=== PATIENT | female | born 1985 | race Caucasian/White ===

== ENCOUNTER → 2017-12-04 17:14 | Outpatient (CLI) | payer OTHER, MEDICAID, SELFPAY ==
[2017-12-04 18:38] LABS: HCG Quantitative /Beta subunit < 2.39 mIU/mL
== END ==
PROVIDERS: Family Provider Family Medicine; PCP Family Medicine; Visit Provider Family Medicine
DX: N91.2 Amenorrhea, unspecified (principal)
CPT/HCPCS: 36415; 84702

== ENCOUNTER → 2018-02-13 12:10 | Outpatient (CLI) | payer OTHER, MEDICAID, SELFPAY ==
[2018-02-13 12:30] LABS: Add Manual Diff / Slide Review NO; Basophils Percent Auto 0.6 % (0-2); Eosinophils Percent Auto 0.8 % (2-4); Hematocrit 35.6 % (36-46); Hemoglobin 12.1 g/dL (12.0-16.0); Lymphocytes Percent Auto 28.7 % (25-40); Mean Corpuscular HGB Conc 33.9 % (30-36); Mean Corpuscular Hemoglobin 30.8 PG (26-34); Mean Corpuscular Volume 90.7 fL (80-100); Neutrophils Absolute Auto 5800 /uL (3000-5900); Neutrophils Percent Auto 62.9 % (50-75); Platelet Count 230 X10^3/uL (150-400); Red Blood Cell Count 3.92 X10^6/uL (4.0-5.2); Red Cell Distribution Width 12.4 % (11.6-14.8); White Blood Cell Count 9.2 X10^3/uL (4.5-11.0)
[2018-02-13 12:54] LABS: Appearance Urine UA SL CLOUDY; Bilirubin Urine UA NEGATIVE (NEGATIVE); Color Urine UA YELLOW; Glucose Urine UA NEGATIVE (Normal); Ketones Urine UA TRACE (NEGATIVE); Leukocyte Esterase Urine UA NEGATIVE (NEGATIVE); Nitrite Urine UA NEGATIVE (Negative); Occult Blood Urine UA NEGATIVE (Negative); Protein Urine UA NEGATIVE (Negative); Specific Gravity Urine UA >=1.030 (1.000-1.035); Urobilinogen Urine UA 0.2 E.U./dL (0.2); pH Urine UA 5.5 (4.5-8.0)
[2018-02-13 13:17] LABS: TSH w/ Reflex to FT4 0.04 uIU/mL (0.47-4.68)
[2018-02-13 13:54] LABS: Free T4, Direct Thyroxine 1.46 ng/dL (0.78-2.19)
[2018-02-13 17:06] LABS: Hepatitis B Surface Antigen NEGATIVE s/c (NEGATIVE); Rubella Antibody IgG 67.9 IU/mL (>15)
[2018-02-13 17:27] LABS: HIV 1 and 2 Antibody NEGATIVE (NEGATIVE); Hep C Virus Ab w/Reflex Quant NEGATIVE s/c (NEGATIVE)
[2018-02-15 13:19] LABS: RPR Screen Nonreactive (Nonreactive)
[2018-02-16 08:55] LABS: HSV 2 IGG AB < 0.90 index (< 0.90); HSV1IGG 2.79 index (< 0.90)
== END ==
PROVIDERS: Family Provider Family Medicine; PCP Family Medicine; Visit Provider Specialist
DX: Z34.81 Encounter for supervision of other normal pregnancy, first trimester (principal); Z3A.01 Less than 8 weeks gestation of pregnancy; Z13.29 Encounter for screening for other suspected endocrine disorder
CPT/HCPCS: 80055; 81003; 84439; 84443; 86695; 86696; 86703; 86787; 86803; 86850; 86900; 86901; 87077; 87086

== ENCOUNTER → 2018-04-12 16:19 | Outpatient (CLI) | payer OTHER, MEDICAID, SELFPAY ==
[2018-04-19 08:38] LABS: AFP, Serum 87.5 ng/mL; Calc Gestational Age 18.3; Cigarette Smoker NOT GIVEN; Donated Egg NOT GIVEN; Donor Egg Age NOT GIVEN; Estriol, Free 0.83 ng/mL; Inhibin A, Dimeric 265 pg/mL; Maternal Ethnicity CAUCASIAN; Maternal Weight 134 lbs; Number of Fetuses NOT GIVEN; Previous Pregnancy Down Syndro NOT GIVEN; hCG, MoM 1.24; hCG, Serum 30.9 IU/mL
== END ==
PROVIDERS: Family Provider Family Medicine; PCP Family Medicine; Visit Provider Specialist
DX: Z3A.18 18 weeks gestation of pregnancy (principal)
CPT/HCPCS: 36415; 82105; 82677; 84702; 86336

== ENCOUNTER → 2018-04-30 08:07 | Outpatient (CLI) | payer OTHER, MEDICAID, SELFPAY ==
--- NOTE | 2018-04-30 08:08 | DI.US.S_ITS ---
PROCEDURE: US OB >= 14 WEEKS FETUS INDICATIONS: 20 week Anatomic Survey OUTSIDE/PRIOR DATING DATA: Last menstrual period (LMP): Unknown. LMP-based estimated date of delivery (POLLY): N./A.. First dating scan (date and location): [facility], 02/14/18 Estimated date of delivery (POLLY) from first dating scan: 09/15/18. TECHNIQUE: Real-time scanning was performed of the fetus, with image documentation and biometric measurements. COMPARISON: [facility], , OB <= 14 WK FETUS ADD GEST, 02/14/2018, 16:14. [facility], , OB >= 14 WEEKS FETUS, 04/12/2018, 16:10. FINDINGS: General: A single live intrauterine gestation is present. Presentation: Vertex. Placenta: Placental position is posterior, without previa. Amniotic fluid index: 12.2 cm, normal range is 5-24 cm. heart rate: 135 beats per minute. Maternal cervical canal: 3.4 cm long. Normal lower limit is 2.5 cm. biometrics: Biparietal diameter: 4.2 cm equals 18 weeks 4 days Head circumference: 16.8 cm equals 19 weeks 2 days Abdominal circumference: 14.3 cm equals 19 weeks 4 days Femur length: 3.1 cm equals 19 weeks 4 days Estimated gestational age from initial scan: 20 weeks 2 days Composite gestational age from present scan: 19 weeks 2 days Estimated weight and percentile: 300 g, 13 percentile Measurement variability for biometric dating: +/- 7 days from 14 weeks to 15 weeks 6 days gestation, +/- 10 days from 16 weeks to 21 weeks 6 days gestation, +/- 2 weeks from 22 weeks to 27 weeks 6 days gestation, +/- 3 weeks for 28 weeks gestation or later. weight reference: 4500 g or EFW >90/95% is considered macrosomia or large for gestational age. EFW <10% is small for gestational age. EFW 5% or less is considered intra-uterine growth restriction. Anatomic survey: Neuro: Ventricles are non-dilated at less than 10 mm. Cisterna magna is normal at 3-11 mm. Cerebellum is normal in size and morphology. Nuchal skin fold: Normal at less than 6 mm between 14-21 weeks gestational age. Face: Nose and lips, facial profile are normal. Spine: No evidence for spina bifida. Heart: 4-chambered heart is present, with normal ventricular outflow tracts. Diaphragm: Diaphragm is intact. Stomach: Left-sided stomach is present. Kidneys: No hydronephrosis. Normal is less than 5 mm in 2nd trimester, less than 7 mm in 3rd trimester. Cord: 3-vessel cord has orthotopic insertion. Bladder: Normal in size. Extremities: All 4 extremities identified. IMPRESSION: No anatomic abnormalities are identified. Normal interval growth when compared to the prior ultrasound examination. Dictated by: Pepe Oliver M.D. on 04/30/2018 at 9:16 Approved by: Pepe Oliver M.D. on 04/30/2018 at 9:18
== END ==
PROVIDERS: Family Provider Family Medicine; PCP Family Medicine; Visit Provider Specialist
DX: Z36.89 Encounter for other specified antenatal screening (principal); Z3A.19 19 weeks gestation of pregnancy
CPT/HCPCS: 76811; 76817

== ENCOUNTER → 2018-06-04 07:17 | Outpatient (CLI) | payer OTHER, MEDICAID, SELFPAY ==
[2018-06-04 09:23] LABS: Hematocrit 32.8 % (36-46); Hemoglobin 11.1 g/dL (12.0-16.0)
[2018-06-04 09:24] LABS: GTT (PREG) 1 Hour PP 50gm Dose 122 mg/dL (76-139)
[2018-06-04 10:04] LABS: TSH w/ Reflex to FT4 0.57 uIU/mL (0.47-4.68)
== END ==
PROVIDERS: PCP Family Medicine; Visit Provider Specialist
DX: Z34.82 Encounter for supervision of other normal pregnancy, second trimester (principal); Z3A.24 24 weeks gestation of pregnancy; R89.9 Unspecified abnormal finding in specimens from other organs, systems and tissues
CPT/HCPCS: 36415; 82950; 84443; 85014; 85018

== ENCOUNTER 2018-08-14 03:25 | Observation (INO) | payer OTHER, MEDICAID, SELFPAY ==
[2018-08-14] MEDS: ONDANSETRON 4 MG ODT SL (04:10)
[2018-08-14] MEDS: SODIUM CHLORIDE 0.9% 1,000 ML 1000 ML IV ×2 (04:33→06:15)
[2018-08-14 04:50] LABS: RBC Urine None Seen (0-5/HPF); WBC Urine None Seen (0-5/HPF)
[2018-08-14 04:57] LABS: Appearance Urine UA CLEAR; Bilirubin Urine UA 1+ (NEGATIVE); Color Urine UA YELLOW; Glucose Urine UA NEGATIVE (Negative); Ketones Urine UA 3+ (NEGATIVE); Leukocyte Esterase Urine UA NEGATIVE (NEGATIVE); Nitrite Urine UA NEGATIVE (Negative); Occult Blood Urine UA NEGATIVE (Negative); Protein Urine UA 1+ (Negative); Specific Gravity Urine UA >=1.030 (1.000-1.035); pH Urine UA 5.5 (4.5-8.0)
[2018-08-14] MEDS: METOCLOPRAMIDE 10 MG/2 ML INJ IV (05:04)
[2018-08-14 05:13] LABS: Ictotest Urine Negative (Negative)
[2018-08-14 05:14] LABS: Bacteria Urine Few (2-10); Culture Indicated Urine Cult Not Indicated; Mucus Urine 2+ (Negative); Squamous Epithelial Cell Urine 5-10 /HPF (0-5/HPF)
[2018-08-14] MEDS: hydrOXYzine 50 MG/ML INJ IM (05:57)
[2018-08-14 06:23] LABS: Add Manual Diff / Slide Review NO; Basophils Absolute Auto 0 /uL (0-100); Basophils Percent Auto 0.2 % (0-2); Eosinophils Absolute Auto 0 /uL (0-450); Eosinophils Percent Auto 0.1 % (2-4); Hematocrit 30.6 % (36-46); Hemoglobin 10.3 g/dL (12.0-16.0); Lymphocytes Absolute Auto 1100 /uL (1100-4500); Lymphocytes Percent Auto 8.9 % (25-40); Mean Corpuscular HGB Conc 33.8 % (30-36); Mean Corpuscular Hemoglobin 30.2 PG (26-34); Mean Corpuscular Volume 89.3 fL (80-100); Monocytes Absolute Auto 500 /uL (0-900); Monocytes Percent Auto 4.1 % (3-14); Neutrophils Absolute Auto 10900 /uL (1500-7000); Neutrophils Percent Auto 86.7 % (50-75); Platelet Count 257 X10^3/uL (150-400); Red Blood Cell Count 3.42 X10^6/uL (4.0-5.2); Red Cell Distribution Width 13.5 % (11.6-14.8); White Blood Cell Count 12.5 X10^3/uL (4.5-11.0)
[2018-08-14 06:33] LABS: BUN Creatinine Ratio 27.5 (6-22); Blood Urea Nitrogen 11 mg/dL (7-17); Calcium 7.9 mg/dL (8.4-10.2); Carbon Dioxide 20 mmol/L (22-32); Chloride 108 mmol/L (98-107); Estimated Glomerular Filt Rate > 60.0 mL/min (>60); Glucose 107 mg/dL (70-100); HEMOLYSIS < 15 (0-50); Potassium 3.5 mmol/L (3.4-5.1); Sodium 135 mmol/L (137-145)
--- NOTE | 2018-08-14 10:00 | P.HP_ITS ---
History of Present Illness Date Patient Seen: 08/14/18 Time Patient Seen: 12:39 Chief complaint: EVALUATION OF LABOR /VOMITING Narrative: Patient is a 32-year-old at 35 weeks and 2 days gestation who presented to the center with nausea and vomiting for 1 day. She states 2 of her 3 kids at home have been sick with a GI bug with vomiting. Yesterday she was unable to keep much down and vomited 10+ times. Emesis is non bloody, non bilious. She states each of her she has had to come in for IV fluids for nausea and vomiting. She tried Zofran at home but it did not help. Denies fevers, diarrhea, abdominal pain, vaginal bleeding or painful contractions. She does use marijuana daily and sometimes multiple times a day. 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 Smoking Status: Former smoker (15 year smkr 1 ppd) alcohol intake: current substance use type: does not use Family & Social History Family History Grandmother Breast cancer Grandmother Pancreatic cancer Social History: lives independently Yes Tobacco & Substance use: Smoking Status Former smoker alcohol intake current alcohol intake frequency a few times a month Meds Allergies Allergy/AdvReac Type Severity Reaction Status Date / Time No Known Drug Allergies Allergy Verified 08/14/18 11:03 Review of Systems Constitutional Constitutional: Reports fatigue and Denies fever(s) Respiratory Respiratory: Denies cough Gastrointestinal Gastrointestinal: Denies abdominal pain, Denies melena, Denies constipation, Denies loose stools, Reports nausea and Reports vomiting Genitourinary Genitourinary: Denies abnormal vaginal bleeding Endocrine Endocrine: Reports fatigue Exam Vital Signs (past 8 hours): Temperature 36.9? blood pressure 107/57 heart rate 85 respirations 16 Narrative Exam Narrative: General: Awake and alert, no acute distress, comfortably resting in bed. HEENT: NCAT, EOMI, moist oral mucosa CV: Regular rate and rhythm, no murmurs, rubs or gallops Lungs: CTAB, no wheezes, rales, or rhonchi Abdomen: Gravid. Nontender. Extremities: Warm, no edema, 2+ pedal pulses bilaterally Objective Labs Result Diagrams: 08/14/18 06:15 08/14/18 06:15 Labs: Laboratory Results - last 24 hr 08/14/18 08/14/18 08/14/18 04:15 06:15 06:15 WBC 12.5 H RBC 3.42 L Hgb 10.3 L Hct 30.6 L MCV 89.3 MCH 30.2 MCHC 33.8 RDW 13.5 Plt Count 257 Neut % (Auto) 86.7 H Lymph % (Auto) 8.9 L [place] % (Auto) 4.1 Eos % (Auto) 0.1 L Baso % (Auto) 0.2 Neut # (Auto) 21653 H Lymph # (Auto) 1100 [place] # (Auto) 500 Eos # (Auto) 0 Baso # (Auto) 0 Sodium 135 L Potassium 3.5 Chloride 108 H Carbon Dioxide 20 L BUN 11 Creatinine 0.40 L Estimated GFR > 60.0 BUN/Creatinine Ratio 27.5 H Glucose 107 H Calcium 7.9 L Urine Color Yellow Urine Appearance Clear Urine pH 5.5 Ur Specific [place] >=1.030 H Urine Protein 1+ H Urine Glucose (UA) Negative Urine Ketones 3+ H Urine Occult Blood Negative Urine Nitrate Negative Urine Bilirubin 1+ H Urine Ictotest Negative Urine Urobilinogen 1.0 Ur Leukocyte Esterase Negative Urine RBC None seen Urine WBC None seen Ur Squamous Epith Cells 5-10 /hpf H Urine Bacteria Few (2-10) H Urine Mucus 2+ H Ur Culture Indicated? Cult not indicated Assessment & Plan (1) 35 weeks gestation of : Current visit: Yes Status: Acute (2) Gastroenteritis: Current visit: Yes Status: Deleted (3) Acute gastroenteritis: Current visit: Yes Status: Acute Assessment & Plan narrative: Patient is a 32-year-old at 35 weeks and 2 days gestation with severe nausea and vomiting likely secondary to gastroenteritis. Multiple sick contacts at home with similar symptoms. She also uses marijuana daily raising concern for possible cyclic vomiting though gastroenteritis seems more likely given the her sick contacts. She received a bolus of normal saline as well as Zofran and Reglan however continued to vomit despite the medications. She subsequently was given a second bolus and Zofran after which she was able to sleep for several hours. Upon waking she felt much improved and had no further emesis. She remained in the center for continued IV fluid support as she was quite dehydrated on admission. She was also given a second dose of hydroxyzine at her request which helped significantly. At the time of my evaluation she was feeling much better and requesting to go home. She had tolerated a bottle of water and was going to try some bites of yogurt. If she is able to keep down some food as well as water, she will discharge home this afternoon. She is scheduled to follow up with Dr. Mckay next week. A toxicology screen was done due to remote history of cocaine use. She adamantly denies drug use other than marijuana and states the positive cocaine was after using marijuana that was laced with cocaine at a constitution party 3 years ago. Patient was advised to return to the center if emesis returns and she is unable to keep down fluids. Please consider this document the H&P as well as discharge summary.
[2018-08-14] MEDS: DEXTROSE 5%-0.45NS W/KCL 20MEQ 1,000 ML 125 MEQ IV (10:23)
[2018-08-14] MEDS: hydrOXYzine pamoate 25 MG CAPSULE 50 MG PO (10:33)
[2018-08-14] MEDS: ACETAMINOPHEN 325 MG TABLET 650 MG PO (11:52)
[2018-08-14] MEDS: ONDANSETRON 4 MG/2 ML INJ IV (12:23)
[2018-08-14 12:53] LABS: Urine Amphetamines Negative (Negative); Urine Barbiturates Negative (Negative); Urine Benzodiazepines Negative (Negative); Urine Cocaine Negative (Negative); Urine MDMA Negative (Negative); Urine Methadone Negative (Negative); Urine Methamphetamines Negative (Negative); Urine Morphine/Opi cutoff 2000 Negative (Negative); Urine Oxycodone Negative (Negative); Urine Phencyclidine Negative (Negative); Urine Tetrahydrocannabinol Positive (Negative); Urine Tricyclic Antidepressant Negative (Negative)
== END 2018-08-14 16:00 | disposition home or self-care (01) ==
PROVIDERS: Admitting Provider Family Medicine; PCP Family Medicine; Visit Provider Family Medicine
DX: O47.03 False labor before 37 completed weeks of gestation, third trimester (principal); K52.9 Noninfective gastroenteritis and colitis, unspecified; Z3A.35 35 weeks gestation of pregnancy
CPT/HCPCS: 36415; 59025; 59050; 80048; 80305; 81001; 85025; 96360; 96361; 96372; G0378; G0379; J2405; J2765; J3410

== ENCOUNTER 2018-08-21 12:23 | Outpatient (CLI) | payer OTHER, MEDICAID, SELFPAY ==
[2018-08-21 13:09] LABS: Appearance Urine UA CLOUDY; Bilirubin Urine UA NEGATIVE (NEGATIVE); Color Urine UA YELLOW; Glucose Urine UA NEGATIVE (Negative); Ketones Urine UA TRACE (NEGATIVE); Leukocyte Esterase Urine UA 1+ (NEGATIVE); Nitrite Urine UA NEGATIVE (Negative); Occult Blood Urine UA NEGATIVE (Negative); Protein Urine UA NEGATIVE (Negative); Specific Gravity Urine UA 1.025 (1.000-1.035); Urobilinogen Urine UA 0.2 E.U./dL (0.2)
[2018-08-21 13:19] LABS: Bacteria Urine Many (>30); Culture Indicated Urine Specimen Cultured; Mucus Urine 2+ (Negative); RBC Urine None Seen (0-5/HPF); Squamous Epithelial Cell Urine 1-5 /HPF (0-5/HPF); WBC Urine 10-30/HPF (0-5/HPF)
== END 2018-08-21 13:42 | disposition home or self-care (01) ==
LOC: OB 08-23 15:12
PROVIDERS: Obstetrics & Gynecology; PCP Family Medicine; Visit Provider Specialist
DX: O26.893 Other specified pregnancy related conditions, third trimester (principal); R51 Headache; H53.9 Unspecified visual disturbance; Z3A.36 36 weeks gestation of pregnancy
CPT/HCPCS: 59025; 81003; 81015; 87077; 87086; G0378; G0379

== ENCOUNTER → 2018-08-22 14:42 | Outpatient (CLI) | payer OTHER, MEDICAID, SELFPAY ==
[2018-08-22 23:27] LABS: Strep Grp B PCR NEG for Grp B Strep
== END ==
PROVIDERS: PCP Family Medicine; Visit Provider Specialist
DX: Z34.83 Encounter for supervision of other normal pregnancy, third trimester (principal); Z3A.36 36 weeks gestation of pregnancy
CPT/HCPCS: 87081; 87653

== ENCOUNTER 2018-08-23 00:01 | Inpatient (IN) | payer OTHER, MEDICAID, SELFPAY ==
[2018-08-23] VITALS (7 sets, daily range): BP systolic 85–133; BP diastolic 40–66; PULSE 69–74; RESP 18–24; TEMP 36.2–36.5; O2SAT 20–96
--- NOTE | 2018-08-23 | PATH_ITS ---
[facility] Accession Number: [id number] . 01 Material submitted: . fallopian tube - BILATERAL FALLOPIAN TUBE SEGMENTS . 02 Diagnosis: Bilateral Fallopian Tube Segments, Tubal Ligation: Complete cross-sections of segments of fallopian tube x2. [facility]/08/27/2018 . 02 Electronically signed: . Leanna Wallace MD, Pathologist NPI- [id number] . 01 Gross description: . Received in formalin, labeled bilateral fallopian tube segments, are two nonfimbriated fallopian tube segments (segment #1: length-2.0 cm, diameter-0.3 cm; segment #2: length-3.2 cm, diameter-0.3 cm) with gunter-pink smooth shiny serosa and lopez unremarkable lumens. Section code: (A1) segment #1, service center representative serial sections; (A2) segment #2, service center representative serial sections. ([id number]) /MRV . 02 Pathologist provided ICD-10: Z30.2 . 02 CPT . 888581 Performed at: 01 [facility] [address], [place], [place] [id number] MD Duke Gabriel MD Phone: [phone] Performed at: 02 [facility] [address] [place], [place] [id number] MD Zara Burk MD Phone: [phone]
[2018-08-23 01:24] LABS: Add Manual Diff / Slide Review NO; Basophils Absolute Auto 100 /uL (0-100); Basophils Percent Auto 0.5 % (0-2); Eosinophils Absolute Auto 100 /uL (0-450); Eosinophils Percent Auto 0.4 % (2-4); Hematocrit 31.3 % (36-46); Hemoglobin 10.5 g/dL (12.0-16.0); Lymphocytes Absolute Auto 3200 /uL (1100-4500); Lymphocytes Percent Auto 18.7 % (25-40); Mean Corpuscular HGB Conc 33.6 % (30-36); Mean Corpuscular Hemoglobin 30.3 PG (26-34); Monocytes Absolute Auto 1000 /uL (0-900); Monocytes Percent Auto 5.8 % (3-14); Neutrophils Absolute Auto 12900 /uL (1500-7000); Neutrophils Percent Auto 74.6 % (50-75); Platelet Count 294 X10^3/uL (150-400); Red Blood Cell Count 3.48 X10^6/uL (4.0-5.2); Red Cell Distribution Width 13.2 % (11.6-14.8); White Blood Cell Count 17.3 X10^3/uL (4.5-11.0)
[2018-08-23 01:45] LABS: Urine Amphetamines Negative (Negative); Urine Barbiturates Negative (Negative); Urine Benzodiazepines Negative (Negative); Urine Cocaine Negative (Negative); Urine MDMA Negative (Negative); Urine Methadone Negative (Negative); Urine Methamphetamines Negative (Negative); Urine Morphine/Opi cutoff 2000 Negative (Negative); Urine Oxycodone Negative (Negative); Urine Phencyclidine Negative (Negative); Urine Tetrahydrocannabinol Positive (Negative); Urine Tricyclic Antidepressant Positive (Negative)
[2018-08-23] MEDS: ONDANSETRON 4 MG/2 ML INJ IV ×4 (01:48→16:39)
[2018-08-23] MEDS: LACTATED RINGERS 1,000 ML 100 ML IV ×2 (01:48→20:59)
--- NOTE | 2018-08-23 03:18 | PM.OBHP.1 ---
OB HPI Date/Time Date of admission: 08/23/18 Date Patient Seen: 08/23/18 Time Patient Seen: 03:19 History of Present Condition Chief complaint: Evaluation of Labor : 6 Para: 5 Estimated Date of Delivery: 09/11/18 Estimated Gestational Age (weeks): 36 Narrative: Molly Roman is a 32 year old female admitted in active labor History of Present care: good care, initiated at week # (9), number of visits (10) and pounds weight gain (9) Dating criteria: LMP confirmed by 1st trimester US Ultrasounds: normal mid trimester US Obstetrical complications: none Medical complications: none Preadmission Labs Blood type: AB (+) positive -: Antibody screen: negative, GBS status: negative, HBsAG: negative, HIV: negative and RPR/VDLR: negative -: Chlamydia screen: not detected and Gonorrhea screen: not detected -: Rubella: immune and Varicella: immune HCAB: negative PAP: Normal Quad screen: Normal 1 hr GTT: 122 Prior (ies) History: 2005 40wk, M, 7#7oz, 2007 40wk, M, 7#5oz, 2013 40 wk F 7#4oz, 2015 39 wk 4#4oz 04/16/2017 41 week 6#13oz F Evaluation Evaluation Baseline heart rate: 110 Variability: Moderate (11-25) monitor accelerations: Present monitor decelerations: Episodic Contraction Frequency (minutes): 3 Uterine Contraction Intensity: Moderate Category of Tracing: II Cervical dilation (cm): 6 Cervical effacement (%): 90 station: +1 Laboratory results: Laboratory Tests 08/23/18 08/23/18 08/23/18 00:40 01:15 01:15 WBC 17.3 H RBC 3.48 L Hgb 10.5 L Hct 31.3 L MCV 90.0 MCH 30.3 MCHC 33.6 RDW 13.2 Plt Count 294 Neut % (Auto) 74.6 Lymph % (Auto) 18.7 L [place] % (Auto) 5.8 Eos % (Auto) 0.4 L Baso % (Auto) 0.5 Neut # (Auto) 52563 H Lymph # (Auto) 3200 [place] # (Auto) 1000 H Eos # (Auto) 100 Baso # (Auto) 100 Urine Opiates Screen Negative Ur Oxycodone Screen Negative Urine Methadone Screen Negative Ur Barbiturates Screen Negative U Tricyclic Antidepress Positive H Ur Phencyclidine Scrn Negative Ur Amphetamines Screen Negative U Methamphetamines Scrn Negative Ur MDMA Scrn (Ecstasy) Negative U Benzodiazepines Scrn Negative Urine Cocaine Screen Negative U Marijuana (THC) Screen Positive H Blood Type AB Positive Antibody Screen Positive [facility] Medical History (Updated 08/23/18 @ 03:34 by Karla Mckay MD) Hypothyroidism (acquired) (Chronic) Pyelonephritis (Inactive) Depression (Acute) Spontaneous vaginal delivery (Acute) Family History Grandmother Breast cancer Grandmother Pancreatic cancer Social History (Updated 07/11/17 @ 13:06 by Arlet Rosas DO) number of children: 3 lives independently: Yes occupational status: other 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 Smoking Status: Former smoker (15 year smkr 1 ppd) alcohol intake: current substance use type: does not use Social History (Updated 07/11/17 @ 13:06 by Arlte Rosas DO) number of children: 3 lives independently: Yes occupational status: other 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 Smoking Status: Former smoker (15 year smkr 1 ppd) alcohol intake: current substance use type: does not use Meds Home Medications Medication Instructions Recorded Confirmed Type 1 tab PO DAILY #100 tab 01/22/18 03/07/18 Rx vitamin,calcium,rvjauvmz-uxdh-dqgsm acid tablet ondansetron 4 mg disintegrating 4 mg PO Q6-8H PRN #20 tab 04/12/18 Rx tablet sertraline 50 mg tablet 50 mg PO DAILY #30 tab 05/02/18 05/02/18 Rx hydroxyzine pamoate 50 mg PO Q4HR PRN #30 cap 08/14/18 Rx bupropion HCl XL 150 mg 24 hr 150 mg PO QAM #30 tab 08/16/18 Rx tablet, extended release Allergies Allergy/AdvReac Type Severity Reaction Status Date / Time No Known Drug Allergies Allergy Verified 08/14/18 11:03 Review of Systems Review of Systems No signs or symptoms of preeclampsia, with spontaneous rupture membranes All systems reviewed & are unremarkable except as noted in HPI and below Exam Vital Signs (past 8 hours): - 08/23/18 01:48 Blood Pressure 133/66 Narrative Exam Narrative: HEENT exam within normal limits. Lungs are clear to auscultation and percussion. Heart is regular rate and rhythm no S3-S4 or murmurs. Abdomen is gravid. Extremities without edema and nontender Objective Labs Result Diagrams: 08/23/18 01:15 Labs: Laboratory Results - last 24 hr 08/23/18 08/23/18 08/23/18 00:40 01:15 01:15 WBC 17.3 H RBC 3.48 L Hgb 10.5 L Hct 31.3 L MCV 90.0 MCH 30.3 MCHC 33.6 RDW 13.2 Plt Count 294 Neut % (Auto) 74.6 Lymph % (Auto) 18.7 L [place] % (Auto) 5.8 Eos % (Auto) 0.4 L Baso % (Auto) 0.5 Neut # (Auto) 58748 H Lymph # (Auto) 3200 [place] # (Auto) 1000 H Eos # (Auto) 100 Baso # (Auto) 100 Urine Opiates Screen Negative Ur Oxycodone Screen Negative Urine Methadone Screen Negative Ur Barbiturates Screen Negative U Tricyclic Antidepress Positive H Ur Phencyclidine Scrn Negative Ur Amphetamines Screen Negative U Methamphetamines Scrn Negative Ur MDMA Scrn (Ecstasy) Negative U Benzodiazepines Scrn Negative Urine Cocaine Screen Negative U Marijuana (THC) Screen Positive H Blood Type AB Positive Antibody Screen Positive Assessment and Plan Assessment and Plan Assessment and Plan narrative: Thirty-six week gestation with spontaneous rupture membranes in active labor. Anticipate vaginal delivery. Time Spent with Patient Total time spent with greater than 50% in coordination of care (as documented) at patient's floor/unit and/or counseling patient:: less than 15 minutes
--- NOTE | 2018-08-23 03:39 | P.HPOB_ITS ---
OB HPI Date/Time Date of admission: 08/23/18 Date Patient Seen: 08/23/18 Time Patient Seen: 03:19 History of Present Condition Chief complaint: Evaluation of Labor : 6 Para: 5 Estimated Date of Delivery: 09/11/18 Estimated Gestational Age (weeks): 36 Narrative: Molly Roman is a 32 year old female admitted in active labor History of Present care: good care, initiated at week # (9), number of visits (10) and pounds weight gain (9) Dating criteria: LMP confirmed by 1st trimester US Ultrasounds: normal mid trimester US Obstetrical complications: none Medical complications: none Preadmission Labs Blood type: AB (+) positive -: Antibody screen: negative, GBS status: negative, HBsAG: negative, HIV: negative and RPR/VDLR: negative -: Chlamydia screen: not detected and Gonorrhea screen: not detected -: Rubella: immune and Varicella: immune HCAB: negative PAP: Normal Quad screen: Normal 1 hr GTT: 122 Prior (ies) History: 2005 40wk, M, 7#7oz, 2007 40wk, M, 7#5oz, 2013 40 wk F 7#4oz, 2015 39 wk 4#4oz 04/16/2017 41 week 6#13oz F Evaluation Evaluation Baseline heart rate: 110 Variability: Moderate (11-25) monitor accelerations: Present monitor decelerations: Episodic Contraction Frequency (minutes): 3 Uterine Contraction Intensity: Moderate Category of Tracing: II Cervical dilation (cm): 6 Cervical effacement (%): 90 station: +1 Laboratory results: Laboratory Tests 08/23/18 08/23/18 08/23/18 00:40 01:15 01:15 WBC 17.3 H RBC 3.48 L Hgb 10.5 L Hct 31.3 L MCV 90.0 MCH 30.3 MCHC 33.6 RDW 13.2 Plt Count 294 Neut % (Auto) 74.6 Lymph % (Auto) 18.7 L [place] % (Auto) 5.8 Eos % (Auto) 0.4 L Baso % (Auto) 0.5 Neut # (Auto) 29331 H Lymph # (Auto) 3200 [place] # (Auto) 1000 H Eos # (Auto) 100 Baso # (Auto) 100 Urine Opiates Screen Negative Ur Oxycodone Screen Negative Urine Methadone Screen Negative Ur Barbiturates Screen Negative U Tricyclic Antidepress Positive H Ur Phencyclidine Scrn Negative Ur Amphetamines Screen Negative U Methamphetamines Scrn Negative Ur MDMA Scrn (Ecstasy) Negative U Benzodiazepines Scrn Negative Urine Cocaine Screen Negative U Marijuana (THC) Screen Positive H Blood Type AB Positive Antibody Screen Positive [facility] Medical History (Updated 08/23/18 @ 03:34 by Karla Mckay MD) Hypothyroidism (acquired) (Chronic) Pyelonephritis (Inactive) Depression (Acute) Spontaneous vaginal delivery (Acute) Family History Grandmother Breast cancer Grandmother Pancreatic cancer Social History (Updated 07/11/17 @ 13:06 by Arlet Rosas DO) number of children: 3 lives independently: Yes occupational status: other 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 Smoking Status: Former smoker (15 year smkr 1 ppd) alcohol intake: current substance use type: does not use Social History (Updated 07/11/17 @ 13:06 by Arlet Rosas DO) number of children: 3 lives independently: Yes occupational status: other 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 Smoking Status: Former smoker (15 year smkr 1 ppd) alcohol intake: current substance use type: does not use Meds Home Medications Medication Instructions Recorded Confirmed Type 1 tab PO DAILY #100 tab 01/22/18 03/07/18 Rx vitamin,calcium,czlixoij-lgue-bnkgw acid tablet ondansetron 4 mg disintegrating 4 mg PO Q6-8H PRN #20 tab 04/12/18 Rx tablet sertraline 50 mg tablet 50 mg PO DAILY #30 tab 05/02/18 05/02/18 Rx hydroxyzine pamoate 50 mg PO Q4HR PRN #30 cap 08/14/18 Rx bupropion HCl XL 150 mg 24 hr 150 mg PO QAM #30 tab 08/16/18 Rx tablet, extended release Allergies Allergy/AdvReac Type Severity Reaction Status Date / Time No Known Drug Allergies Allergy Verified 08/14/18 11:03 Review of Systems Review of Systems No signs or symptoms of preeclampsia, with spontaneous rupture membranes All systems reviewed & are unremarkable except as noted in HPI and below Exam Vital Signs (past 8 hours): - 08/23/18 01:48 Blood Pressure 133/66 Narrative Exam Narrative: HEENT exam within normal limits. Lungs are clear to auscultation and percussion. Heart is regular rate and rhythm no S3-S4 or murmurs. Abdomen is gravid. Extremities without edema and nontender Objective Labs Result Diagrams: 08/23/18 01:15 Labs: Laboratory Results - last 24 hr 08/23/18 08/23/18 08/23/18 00:40 01:15 01:15 WBC 17.3 H RBC 3.48 L Hgb 10.5 L Hct 31.3 L MCV 90.0 MCH 30.3 MCHC 33.6 RDW 13.2 Plt Count 294 Neut % (Auto) 74.6 Lymph % (Auto) 18.7 L [place] % (Auto) 5.8 Eos % (Auto) 0.4 L Baso % (Auto) 0.5 Neut # (Auto) 50795 H Lymph # (Auto) 3200 [place] # (Auto) 1000 H Eos # (Auto) 100 Baso # (Auto) 100 Urine Opiates Screen Negative Ur Oxycodone Screen Negative Urine Methadone Screen Negative Ur Barbiturates Screen Negative U Tricyclic Antidepress Positive H Ur Phencyclidine Scrn Negative Ur Amphetamines Screen Negative U Methamphetamines Scrn Negative Ur MDMA Scrn (Ecstasy) Negative U Benzodiazepines Scrn Negative Urine Cocaine Screen Negative U Marijuana (THC) Screen Positive H Blood Type AB Positive Antibody Screen Positive Assessment and Plan Assessment and Plan Assessment and Plan narrative: Thirty-six week gestation with spontaneous rupture membranes in active labor. Anticipate vaginal delivery. Time Spent with Patient Total time spent with greater than 50% in coordination of care (as documented) at patient's floor/unit and/or counseling patient:: less than 15 minutes
[2018-08-23] MEDS: OXYTOCIN 10 UNIT/ML VIAL IM (04:12)
--- NOTE | 2018-08-23 04:17 | PM.OBPRVD ---
Delivery date: 08/23/18 Intrapartal events: None Cervical ripening method: none Induction method: none Delivery monitor: external FHT and external uterine Route of delivery: L&D Laceration Description: None Estimated blood loss (mL): 150 Anesthesia type: Other (Nitrous oxide) Narrative: Patient arrived on Labor and delivery with spontaneous rupture membranes in active labor. heart tone baseline was low with intermittent possible late decelerations otherwise reassuring tracing. Patient received nitrous for pain control. She had a spontaneous delivery over an intact perineum. The viable female had a tight nuchal cord. She was placed on maternal abdomen but after a minute infant's cord was clamped and the infant taken to the warmer to monitor respirations closer. Fairly quickly she was placed back on the maternal abdomen. Patient is placenta delivered spontaneously, intact, with 3 vessels. There were no cervical, vaginal, or perineal tears. Mother received IM Pitocin. Both infant mother doing well. [place] Baby 1: Infant gender: Female Presentation: vertex position: Right Occiput Anterior Placenta delivery description: Spontaneous cord vessel description: Nuchal Cord score (1 min): 8 score (5 min): 9 Plan for aftercare: Routine care
[2018-08-23] MEDS: HYDROCODONE/ACET 5/325 TABLET 2 TAB PO ×2 (05:30→11:14)
[2018-08-23] MEDS: ALPRAZolam 0.5 MG TABLET PO (08:48)
[2018-08-23] MEDS: hydrOXYzine pamoate 25 MG CAPSULE PO (09:51)
[2018-08-23] MEDS: KETOROLAC 30 MG/ML VIAL IV ×3 (09:54→23:32)
[2018-08-23] MEDS: MORPHINE 10 MG/ML INJ 2 MG IV (10:15)
--- NOTE | 2018-08-23 12:46 | PM.PREOP ---
Pre-operative Note Interval Note History & Physical reviewed/Exam performed by Physician: Yes Changes to H&P: Yes H&P completed within 30 days and has changed as indicated here:: Status post vaginal delivery, patient with anxiety, nausea and vomiting. Vital signs are stable.
[2018-08-23] MEDS: CEFAZOLIN 2 GM/100 ML FROZ.PIGGY IV (13:13)
[2018-08-23] MEDS: ACETAMINOPHEN IV 1,000 MG/100 ML VIAL 400 MG IV (13:25)
[2018-08-23] MEDS: BUPIVACAINE 0.5% W/ EPI (PF) VIAL 30 ML INJ (13:27)
--- NOTE | 2018-08-23 13:57 | PM.OP.1 ---
Operative Date/Time/Diagnoses Date of procedure: 08/23/18 Time of procedure: 13:57 Pre-op diagnosis: Undesired fertility Post-op diagnosis: same Procedure & Clinicians Procedure: Mini laparotomy bilateral tubal ligation Same procedure as scheduled: Yes Indications: Patient just delivered her 6th baby and is requesting sterilization Surgeon: Karla Mckay Click Yes if Unassisted: Yes Anesthesia Type: General Operative Notes Findings: Normal fallopian tubes bilaterally. Closure Type: primary Specimen(s): other (Bilateral segments of fallopian tubes) Estimated Blood Loss (mL): 1 Blood products transfused: none Procedure in detail: Patient was brought to the operating room where she underwent general anesthesia. She was in a supine position. Warming was with blankets. Pulsatile stockings in place and functional. 2 g Ancef in prior to beginning of the case. A check system was reviewed with the staff in the room prior to beginning the case. Patient was prepped and draped in the usual sterile fashion. The area of the umbilical incision was injected with 0.5% Marcaine with epinephrine. The incision was carried down to the fascial layer which was incised transversely. The left fallopian tube was grasped with a [place] and a segment tied off x2 with 2 0 plain suture. The intervening section was removed with scissors. Adequate hemostasis was noted. The tube was allowed to fall back in the abdomen. Same procedure was performed on the right side. The fascial layer was closed with 0 Vicryl suture. Skin was closed with 4 0 Monocryl. Patient went to recovery room in good condition. Counts of instruments and sponges were correct. Complications: none Condition: stable Disposition: other (Return to Center for care) Plan for aftercare: Routine care
[2018-08-23] MEDS: LORazepam 2 MG/ML INJ 1 MG IV (21:00)
[2018-08-24] MEDS: ONDANSETRON 4 MG/2 ML INJ IV (04:26)
[2018-08-24] MEDS: LORazepam 2 MG/ML INJ 1 MG IV (04:27)
[2018-08-24] MEDS: KETOROLAC 30 MG/ML VIAL IV (06:21)
[2018-08-24 07:08] LABS: Hematocrit 29.9 % (36-46)
[2018-08-24] MEDS: hydrOXYzine pamoate 25 MG CAPSULE 50 MG PO (10:04)
[2018-08-24] MEDS: IBUPROFEN 600 MG TABLET PO (12:35)
--- NOTE | 2018-08-24 16:54 | PM.OBDS.1 ---
Discharge Providers Date of admission: 08/23/18 00:01 Discharge Date: 08/24/18 Primary care physician: Arlet Rosas DO Consults: 08/23/18 05:36 Consult to Et[employer] Database Developer Routine Comment: 08/23/18 15:55 Consult to [employer] Database Developer Routine Comment: Discharge provider: Karla Mckay MD Summary Date Patient Seen: 08/24/18 Time Patient Seen: 16:55 Procedures: Spontaneous vaginal delivery, tubal ligation Hospital Course: Patient arrived on Labor and delivery in active labor with spontaneous rupture membranes. She use nitrous oxide for pain control. She had a spontaneous vaginal delivery. Both infant and mother doing well. Patient had extreme nausea and vomiting for approximately 24 hours but now is tolerating regular diet. She denies any signs or symptoms of preeclampsia. She has some pain of the umbilicus incision, and uterine cramping but is tolerable. She declines any pain medicine prescriptions. Peripartum Data Infant Delivery Method: Natural Vaginal Laceration description: None Procedures: Spontaneous vaginal delivery, tubal ligation complications: none [place] 1: Gender: Female Disposition of : home Status at Discharge Cognitive/behavioral status at discharge: oriented Overall status at discharge: patient is progressing back to baseline Time Spent with Patient Total time spent providing and/or coordinating discharge services: Objective Labs Result Diagrams: 08/24/18 06:37 Labs: Laboratory Results - last 24 hr 08/24/18 06:37 Hgb 10.0 L Hct 29.9 L Exam Vital Signs (past 8 hours): Blood pressure 112/55, pulse 71, temperature 98.2? Oxygen Delivery Method Room Air Narrative Exam Narrative: Patient's abdomen is soft, nontender. Her umbilical incision is intact without evidence of infection. Uterus is firm, U -2, appropriately tender. Mild lochia. Extremities without edema nontender. Patient's blood type is AB positive and she is rubella immune. Discharge Plan Discharge Plan Patient Disposition: Home Discharge Med Rec/Prescriptions Prescriptions: Continued prenat.vits,julius,fsj-czsz-spuwo tablet 1 tab PO DAILY Qty: 100 RF: 3 bupropion HCl [Wellbutrin XL] 150 mg tablet extended release 24 hr 150 mg PO QAM Qty: 30 RF: 0 sertraline 50 mg tablet 50 mg PO DAILY Qty: 30 RF: 3 ondansetron 4 mg tablet,disintegrating 4 mg PO Q6-8H PRN (Reason: nausea and vomiting) Qty: 20 RF: 1 hydroxyzine pamoate 25 mg Capsule 50 mg PO Q4HR PRN (Reason: Nausea) Qty: 30 RF: 0 Follow up/Referrals: Karla Mckay MD [Physician] - 1 Month Arlet Rosas DO [Primary Care Provider] - Provider Discharge Instructions Diet: Diet as Tolerated Skin/Wound/Dressing Care Report to your healthcare provider any signs of infection, such as:: chills, fever, increased pain and unusual redness Discharge Data Primary Care Provider: Arlet Rosas Attending Provider: Karla Mckay Admit Date/Time: 08/23/18 00:01
--- NOTE | 2018-08-24 17:01 | P.DS_ITS ---
Discharge Providers Date of admission: 08/23/18 00:01 Discharge Date: 08/24/18 Primary care physician: Arlet Rosas DO Consults: 08/23/18 05:36 Consult to Fiber Designer Routine Comment: 08/23/18 15:55 Consult to Fiber Designer Routine Comment: Discharge provider: Karla Mckay MD Summary Date Patient Seen: 08/24/18 Time Patient Seen: 16:55 Procedures: Spontaneous vaginal delivery, tubal ligation Hospital Course: Patient arrived on Labor and delivery in active labor with spontaneous rupture membranes. She use nitrous oxide for pain control. She had a spontaneous vaginal delivery. Both infant and mother doing well. Patient had extreme nausea and vomiting for approximately 24 hours but now is tolerating regular diet. She denies any signs or symptoms of preeclampsia. She has some pain of the umbilicus incision, and uterine cramping but is tolerable. She declines any pain medicine prescriptions. Peripartum Data Infant Delivery Method: Natural Vaginal Laceration description: None Procedures: Spontaneous vaginal delivery, tubal ligation complications: none [place] 1: Gender: Female Disposition of : home Status at Discharge Cognitive/behavioral status at discharge: oriented Overall status at discharge: patient is progressing back to baseline Time Spent with Patient Total time spent providing and/or coordinating discharge services: Objective Labs Result Diagrams: 08/24/18 06:37 Labs: Laboratory Results - last 24 hr 08/24/18 06:37 Hgb 10.0 L Hct 29.9 L Exam Vital Signs (past 8 hours): Blood pressure 112/55, pulse 71, temperature 98.2? Oxygen Delivery Method Room Air Narrative Exam Narrative: Patient's abdomen is soft, nontender. Her umbilical incision is intact without evidence of infection. Uterus is firm, U -2, appropriately tender. Mild lochia. Extremities without edema nontender. Patient's blood type is AB positive and she is rubella immune. Discharge Plan Discharge Plan Patient Disposition: Home Discharge Med Rec/Prescriptions Prescriptions: Continued prenat.vits,julius,rgo-wabr-sqect tablet 1 tab PO DAILY Qty: 100 RF: 3 bupropion HCl [Wellbutrin XL] 150 mg tablet extended release 24 hr 150 mg PO QAM Qty: 30 RF: 0 sertraline 50 mg tablet 50 mg PO DAILY Qty: 30 RF: 3 ondansetron 4 mg tablet,disintegrating 4 mg PO Q6-8H PRN (Reason: nausea and vomiting) Qty: 20 RF: 1 hydroxyzine pamoate 25 mg Capsule 50 mg PO Q4HR PRN (Reason: Nausea) Qty: 30 RF: 0 Follow up/Referrals: Karla Mckay MD [Physician] - 1 Month Arlet Rosas DO [Primary Care Provider] - Provider Discharge Instructions Diet: Diet as Tolerated Skin/Wound/Dressing Care Report to your healthcare provider any signs of infection, such as:: chills, fever, increased pain and unusual redness Discharge Data Primary Care Provider: Arlet Rosas Attending Provider: Karla Mckay Admit Date/Time: 08/23/18 00:01
[2018-08-24 17:09] VITALS: BP 112/55; PULSE 71; RESP 14; TEMP 36.8
== END 2018-08-24 18:35 | disposition home or self-care (01) | DRG 541 ==
PROVIDERS: Admitting Provider Specialist; PCP Family Medicine; Visit Provider Specialist
PROC: 10E0XZZ Delivery of Products of Conception, External Approach (ICD-10-PCS; CPT 58605; principal; 2018-08-23 14:00)
DX: O69.81X0 Labor and delivery complicated by cord around neck, without compression, not applicable or unspecified (principal); Z3A.36 36 weeks gestation of pregnancy; Z37.0 Single live birth; Z30.2 Encounter for sterilization
CPT/HCPCS: 36415; 58605; 59050; 59409; 80305; 84112; 85014; 85018; 85025; 86850; 86870; 86900; 86901; 86902; 87081; 87653; G0379; J0131; J0330; J0690; J1100; J1885; J2060; J2250; J2270; J2405; J2590; J2704; J3010

== ENCOUNTER 2018-08-25 10:50 | Emergency (ER) | payer OTHER, MEDICAID, SELFPAY ==
[2018-08-25 10:55] VITALS: BP 121/77; PULSE 101; RESP 20; TEMP 36.1; O2SAT 99
--- NOTE | 2018-08-25 11:16 | ED_ITS ---
HPI - Nausea/Vomiting/Diarrhea <Nuvia IsbellEDUARDO - Last Filed: 08/25/18 18:27> General Chief complaint: Nausea/Vomiting/Diarrhea Stated complaint: referred by dr bedoya/just had baby not feeling wel Time Seen by Provider: 08/25/18 10:52 Source: patient and family Mode of arrival: ambulatory Limitations: no limitations History of Present Illness HPI Narrative: 32-year-old female with a history of anxiety depression and daily marijuana smoker (last use today), presents to the emergency department after normal vaginal delivery of her 4th child 2 days ago (08/23/18), her due date was September 15, and she had a laparoscopic tubal ligation afterwards. Patient is complaining of nausea, vomiting, and dry heaving since 4:00 a.m. and states that she had trouble with this and was admitted for rehydration and control of nausea twice to the hospital before . She also complains of associated 7/10 aching abdominal pain around the umbilicus at the location of the incision site, patient told the OB that she did not need anything for pain, denies being prescribed medication for this. Also complains of associated excessive tearfulness, denies thoughts of suicide, denies thoughts of hurting herself or the baby, who patient and partner states that children are home being watched by the grandmother, reports her is doing fine at home. Patient states that it feels like her breathing is really fast and she has occasional chest pressure, that is worse with vomiting. She states that she has had a similar episode after having her 1st baby but was not as bad. Reports that she has not had a bowel movement after delivery at this time. Patient states that hydroxyzine and lorazepam have helped her the most in the past. Denies headaches at this time, change in vision, neck pain, fevers, chills, chest pain, diarrhea, calf pain, dizziness or syncope. MD complaint: nausea, vomiting and abdominal pain Onset (ago): week(s) Description of Vomiting: none Description of Diarrhea: none Associated Abdominal Pain: No Location of pain: periumbilical Severity: moderate Severity scale (1-10): 7 Quality: aching Pain Consistency: constant Relieving factors: none Context: other Related Data Previous Rx's Medication Instructions Recorded 1 tab PO DAILY #100 tab 01/22/18 vitamin,calcium,[id number] acid tablet ondansetron 4 mg disintegrating 4 mg PO Q6-8H PRN #20 tab 04/12/18 tablet hydroxyzine pamoate 50 mg PO Q4HR PRN #30 cap 08/14/18 bupropion HCl XL 150 mg 24 hr 150 mg PO QAM #30 tab 08/16/18 tablet, extended release alprazolam 0.125 mg PO BID PRN #7 tab 08/25/18 omeprazole 20 mg PO DAILY #20 cap 08/25/18 ondansetron 4 mg PO Q8H #10 tab 08/25/18 Allergies Allergy/AdvReac Type Severity Reaction Status Date / Time No Known Drug Allergies Allergy Verified 08/25/18 11:04 Review of Systems <EDUARDO Stanley - Last Filed: 08/25/18 18:27> Review of Systems REVIEW OF SYSTEMS: GENERAL: Denies fever, chills, malaise, or wt. loss. HENT: No head trauma, hearing loss, rhinorrhea, epistaxis, sinus pressure,, complains of sore throat that is worse after vomiting. EYES: No loss of vision, double vision, eye pain, or irritation. CARDIOVASCULAR: Complains of chest tightness, see HPI. Denies palpitations, or edema. RESPIRATORY: Complains of rapid breathing occasional cough is worse after she smokes, see HPI. GASTROINTESTINAL: Reports nausea and vomiting, see HPI. GENITOURINARY: No flank pain, urinary incontinence, hesitancy, frequency, or dysuria. MUSCULOSKELETAL: No pain, weakness, or deformities. INTEGUMENTARY: No rash, lesions, or pruritus. NEURO: No numbness, tingling, memory loss, confusion, or headaches. Reports mL dull aching headache last night that lasted a few hours, was worse with vomiting. PSYCH: Reports excessive tearfulness, see HPI. ENDOCRINOLOGY: No hair loss of temperature intolerance. HEMATOLOGY: No easy bruising. LYMPHATIC: No lymphadenopathy. 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 Smoking Status: Former smoker alcohol intake: current substance use type: does not use Family History Grandmother Breast cancer Grandmother Pancreatic cancer Social History number of children: 3 lives independently: Yes occupational status: other 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 Answers questions appropriately, anxious appearing and is tearful throughout the whole interview and exam. Partner at bedside. Vital signs noted-her rate improved within 10 minutes of arrival. HENT: Normocephalic, atraumatic. Oral mucosa is pink and moist, no caries or lesions present. EYES: PERRLA, EOMIs, no nystagmus, conjunctiva pink, sclera white, no periorbital swelling. LYMPH: No lymphadenopathy. CHEST: Normal to inspection and without deformities. CARDIOVASCULAR: S1 and S2 sounds normal. Regular rate and rhythm, no murmurs, clicks, or bruits. No pedal edema. RESPIRATORY: Normal respiratory rate, however rate is increased when patient becomes upset about circumstances, returns to normal after patient becomes less anxious. Trachea midline, airway patent. No stridor, nasal flaring or accessory muscle use. Lungs are clear in all fontana without wheeze, rhonchi, or crackles. GASTROINTESTINAL: Bowel sounds normoactive. Abdomen is soft. Tenderness and bruising around tubal incision site on umbilicus, no drainage or erythema to wound. Tip of the fundus is felt below the umbilicus just firm and not boggy. Slight tenderness to lower left quadrant with deep palpation. No rebound te nderness or no masses palpated. MUSCULOSKELETAL: Normal gait and coordination. Equal tone and mass bilaterally. No calf tenderness, no ankle edema. EXTREMITIES: CMS intact. Moves all extremities. SKIN: Warm, dry, soft, appropriate color for ethnicity. No rashes. NEURO: Alert and Oriented X 3. Good coordination. No ataxia, or sensory deficits, or cognitive issues. PSYCH: Anxiety and tearfulness exam. <Marjorie Cannon DO - Last Filed: 08/26/18 19:42> Initial Vital Signs Initial Vital Signs: Vital Signs Temperature 97.0 F L 08/25/18 10:55 Pulse Rate 101 H 08/25/18 10:55 Respiratory Rate 20 08/25/18 10:55 Blood Pressure 121/77 08/25/18 10:55 Pulse Oximetry 99 08/25/18 10:55 Course <EDUARDO Stanley - Last Filed: 08/25/18 18:27> Orders Ordered: Discontinued Medications Sodium Chloride (Normal Saline 0.9%) 1,000 mls @ 1,000 mls/hr IV BOLUS ONE Stop: 08/25/18 12:10 Last Infusion: 08/25/18 12:20 Dose: 0 mls/hr Admin: 08/25/18 11:20 Dose: 1,000 mls/hr Ketorolac Tromethamine (Toradol) 30 mg IV NOW ONE Stop: 08/25/18 11:26 Last Admin: 08/25/18 11:32 Dose: 30 mg Lorazepam (Ativan) 0.5 mg IV NOW ONE Stop: 08/25/18 13:00 Last Admin: 08/25/18 13:07 Dose: Not Given Lorazepam (Ativan) 0.5 mg PO NOW ONE Stop: 08/25/18 13:09 Last Admin: 08/25/18 13:11 Dose: 0.5 mg Ondansetron HCl (Zofran) 4 mg IV NOW ONE Stop: 08/25/18 11:12 Last Admin: 08/25/18 11:20 Dose: 4 mg Pantoprazole Sodium (Protonix) 20 mg IV NOW ONE Stop: 08/25/18 11:20 Last Admin: 08/25/18 11:22 Dose: 20 mg Reevaluation(s) Reevaluation #1: Patient states she is feeling much better after Protonix, Zofran and fluids. States in her rapid breathing and chest tightness has disappeared, as well as her nausea. Patient describes these episodes as starting suddenly when she is asleep and feeling very anxious, then vomiting, with hot shower making it better. She does not know what triggers these. She has seen therapists in the past and is interested in seeing 1 additionally. Spoke with patient that daily use of marijuana may be contributing to vomiting, and that her symptoms may be panic attacks. Patient was receptive to converse and understanding about follow-up. Patient able to tolerate juice and crackers. Reevaluation #2: 10 minutes after p.o. trial patient described increasing anxiety and shaking, this is when her significant other left the room to safely. Patient was given warm blankets, food and a dose of Ativan. Called patient's primary care provider to discuss further testing in follow-up if needed, patient refused a CT incident she want to go home. After give patient hydroxyzine which helped patient in the past per Dr. Rosas however patient stated that she did not want any and she wanted to try Xanax instead. Once her significant other return to the room, patient seemed more calm and at ease. Consultations Consultation #1: Patient staffed with Dr. Cannon. Consultation #2: Called Dr. Rosas discussed patient's history of anxiety, further testing, and follow-up. Agreed CT scan would help rule out any surgical abnormalities, however patient refused at this time. Dr. Rosas stated that hydroxyzine work best for the patient, however patient did not want hydroxyzine would rather try Xanax instead. Patient was instructed that she will receive a call Monday for follow-up for possibly Monday. Strict return precautions given Vital Signs - 8 hr 08/25/18 10:55 08/25/18 11:24 08/25/18 12:03 Temperature 97.0 F L Pulse Rate 101 H 64 64 Respiratory Rate 20 14 14 Blood Pressure 121/77 Blood Pressure [Left Arm] 109/51 L 105/52 L Pulse Oximetry 99 98 08/25/18 13:16 Temperature Pulse Rate 112 H Respiratory Rate 24 Blood Pressure Blood Pressure [Left Arm] 108/72 Pulse Oximetry 98 <Marjorie Cannon DO - Last Filed: 08/26/18 19:42> Orders Ordered: Discontinued Medications Sodium Chloride (Normal Saline 0.9%) 1,000 mls @ 1,000 mls/hr IV BOLUS ONE Stop: 08/25/18 12:10 Last Infusion: 08/25/18 12:20 Dose: 0 mls/hr Admin: 08/25/18 11:20 Dose: 1,000 mls/hr Ketorolac Tromethamine (Toradol) 30 mg IV NOW ONE Stop: 08/25/18 11:26 Last Admin: 08/25/18 11:32 Dose: 30 mg Lorazepam (Ativan) 0.5 mg IV NOW ONE Stop: 08/25/18 13:00 Last Admin: 08/25/18 13:07 Dose: Not Given Lorazepam (Ativan) 0.5 mg PO NOW ONE Stop: 08/25/18 13:09 Last Admin: 08/25/18 13:11 Dose: 0.5 mg Ondansetron HCl (Zofran) 4 mg IV NOW ONE Stop: 08/25/18 11:12 Last Admin: 08/25/18 11:20 Dose: 4 mg Pantoprazole Sodium (Protonix) 20 mg IV NOW ONE Stop: 08/25/18 11:20 Last Admin: 08/25/18 11:22 Dose: 20 mg Vital Signs - 8 hr 08/25/18 10:55 08/25/18 11:24 08/25/18 12:03 Temperature 97.0 F L Pulse Rate 101 H 64 64 Respiratory Rate 20 14 14 Blood Pressure 121/77 Blood Pressure [Left Arm] 109/51 L 105/52 L Pulse Oximetry 99 98 08/25/18 13:16 Temperature Pulse Rate 112 H Respiratory Rate 24 Blood Pressure Blood Pressure [Left Arm] 108/72 Pulse Oximetry 98 MDM - Nausea/Vomiting/Diarrhea <EDUARDO Stanley - Last Filed: 08/25/18 18:27> Medical Records Attestation: I reviewed the patient's medical records. Lab Data Attestation: I reviewed the patient's lab results. Result diagrams: 08/25/18 11:16 08/25/18 11:16 Lab Results 06/22/19 06/22/19 06/22/19 Range/Units 11:16 11:16 12:30 WBC 15.1 H (4.5-11.0) X10^3/uL RBC 3.57 L (4.0-5.2) X10^6/uL Hgb 10.6 L (12.0-16.0) g/dL Hct 32.0 L (36-46) % MCV 89.7 (80-100) fL MCH 29.5 (26-34) PG MCHC 32.9 (30-36) % RDW 13.4 (11.6-14.8) % Plt Count 351 (150-400) X10^3/uL Neut % (Auto) 70.6 (50-75) % Lymph % (Auto) 22.1 L (25-40) % [place] % (Auto) 5.7 (3-14) % Eos % (Auto) 0.9 L (2-4) % Baso % (Auto) 0.7 (0-2) % Neut # (Auto) 68946 H (0997-3313) /uL Lymph # (Auto) 3300 (4749-8042) /uL [place] # (Auto) 900 (0-900) /uL Eos # (Auto) 100 (0-450) /uL Baso # (Auto) 100 (0-100) /uL Sodium 139 (137-145) mmol/L Potassium 4.3 (3.4-5.1) mmol/L Chloride 108 H (98-107) mmol/L Carbon Dioxide 24 (22-32) mmol/L BUN 16 (7-17) mg/dL Creatinine 0.50 L (0.52-1.04) mg/dL Estimated GFR > 60.0 (>60) mL/min BUN/Creatinine Ratio 32.0 H (6-22) Glucose 85 (70-100) mg/dL Calcium 8.6 (8.4-10.2) mg/dL Total Bilirubin 0.4 (0.2-1.3) mg/dL AST 46 H (14-36) IU/L ALT 66 H (9-52) IU/L Alkaline Phosphatase 118 (38-126) U/L Total Protein 6.1 L (6.3-8.2) g/dL Albumin 3.3 L (3.5-5.0) g/dL Globulin 2.8 (1.7-4.1) g/dL Albumin/Globulin Ratio 1.2 (1.0-2.8) Lipase 73 (23-300) U/L Urine RBC None seen (0-5/HPF) Urine WBC 5-10/hpf H (0-5/HPF) Ur Squamous Epith Cells 5-10 /hpf H (0-5/HPF) Urine Bacteria None seen (None) Ur Culture Indicated? Cult not indicated Urine Dip Bedside Urine Glucose Negative Bedside Urine Bilirubin - Negative Bedside Urine Ketone - Negative Urine Specific Edgar 1.010 Bedside Urine Occult Blood +/- Bedside Urine pH 7.5 Bedside Urine Protein - Negative Bedside Urine Urobilinogen - Negative Bedside Urine Nitrite - Negative Bedside Urine Leukocytes +/- 15 Esterase MDM Narrative Medical decision making narrative: Suspect patient's vomiting and symptoms are caused by panic attack and marijuana use (rapid onset, multiple episodes before and after , admits to daily marijuana use, normal labs, reported decreased symptoms with hydroxyzine in the past and Ativan). Discussed anxiety and cyclic vomiting extensively with patient, she was open to conversation however she was very emotional that this may take a while to resolve. Less likely HELLP syndrome, preeclampsia, eclampsia, (normal liver enzymes, normal high blood pressure, platelets, no neurological deficits, or complaints of headache). Less likely cardiac or DVT due to resolution of symptoms after fluids and nausea medication, intermittent episodes of anxiety in vomiting, normal oxygen saturation, normal respiratory rate, and normal heart rate, as well as negative exam for DVT, normal lung sounds). Suggested CT for further workup (as her abdominal exam was difficult to interpret due to recent laparoscopic tubal ligation), however patient refused at this time she was ready to go. Suggested hydroxyzine as per Dr. Tavarez as this is what helped in the past, however patient refused. Explained to patient that Dr. Rosas 's office will call her on Monday to schedule an appointment on Monday hopes of getting her in to see a therapist that works in the clinic as well. Strict return precautions given. Patient also has decided to breast breastfeed, h owever patient was instructed if she was to take Xanax she should not breastfeed for 24 hours. Partner was understanding supportive of this. Elevation of white blood cell count is most likely due from recent childbirth as numbers have been elevated in the past and actually decreasing. <Marjorie Cannon, DO - Last Filed: 08/26/18 19:42> Lab Data Lab Results 08/25/18 08/25/18 08/25/18 Range/Units 11:16 11:16 12:30 WBC 15.1 H (4.5-11.0) X10^3/uL RBC 3.57 L (4.0-5.2) X10^6/uL Hgb 10.6 L (12.0-16.0) g/dL Hct 32.0 L (36-46) % MCV 89.7 (80-100) fL MCH 29.5 (26-34) PG MCHC 32.9 (30-36) % RDW 13.4 (11.6-14.8) % Plt Count 351 (150-400) X10^3/uL Neut % (Auto) 70.6 (50-75) % Lymph % (Auto) 22.1 L (25-40) % [place] % (Auto) 5.7 (3-14) % Eos % (Auto) 0.9 L (2-4) % Baso % (Auto) 0.7 (0-2) % Neut # (Auto) 19665 H (9874-3761) /uL Lymph # (Auto) 3300 (1425-1132) /uL [place] # (Auto) 900 (0-900) /uL Eos # (Auto) 100 (0-450) /uL Baso # (Auto) 100 (0-100) /uL Sodium 139 (137-145) mmol/L Potassium 4.3 (3.4-5.1) mmol/L Chloride 108 H (98-107) mmol/L Carbon Dioxide 24 (22-32) mmol/L BUN 16 (7-17) mg/dL Creatinine 0.50 L (0.52-1.04) mg/dL Estimated GFR > 60.0 (>60) mL/min BUN/Creatinine Ratio 32.0 H (6-22) Glucose 85 (70-100) mg/dL Calcium 8.6 (8.4-10.2) mg/dL Total Bilirubin 0.4 (0.2-1.3) mg/dL AST 46 H (14-36) IU/L ALT 66 H (9-52) IU/L Alkaline Phosphatase 118 (38-126) U/L Total Protein 6.1 L (6.3-8.2) g/dL Albumin 3.3 L (3.5-5.0) g/dL Globulin 2.8 (1.7-4.1) g/dL Albumin/Globulin Ratio 1.2 (1.0-2.8) Lipase 73 (23-300) U/L Urine RBC None seen (0-5/HPF) Urine WBC 5-10/hpf H (0-5/HPF) Ur Squamous Epith Cells 5-10 /hpf H (0-5/HPF) Urine Bacteria None seen (None) Ur Culture Indicated? Cult not indicated Urine Dip Bedside Urine Glucose Negative Bedside Urine Bilirubin - Negative Bedside Urine Ketone - Negative Urine Specific Edgar 1.010 Bedside Urine Occult Blood +/- Bedside Urine pH 7.5 Bedside Urine Protein - Negative Bedside Urine Urobilinogen - Negative Bedside Urine Nitrite - Negative Bedside Urine Leukocytes +/- 15 Esterase Discharge Plan Departure Patient Disposition: Home Clinical Impression: Nausea Vomiting Qualifiers: Vomiting type: unspecified Vomiting Intractability: unspecified Nausea presence: with nausea Qualified Code(s): R11.2 - Nausea with vomiting, unspecified Discharge Date/Time: 08/25/18 13:48 Interventions: ED Discharge Assessment Last Done: 08/25/18 13:47 Instructions: DI for Dehydration -- Adult, DI for Anxiety -- Adult, DI for Depression, DI for Vomiting -- Adult Activity Restrictions/Additional Instructions: Thank you for entrusting me with your care today. As discussed, and unsure exact cause severe vomiting, however it may be linked to various things including panic attacks and marijuana use. I suggest to follow up with her primary care provider next week. I prescribed you 3 medication, ondansetron for nausea to take when needed, alprazolam for panic attacks to take when needed (do not breastfeed for a day after taking this as it will make your Infant sleepy), and omeprazole to take daily for heartburn, nausea, and vomiting. Please return to the emergency department if you experience thoughts of hurting herself or anyone around you, severe chest pain, severe shortness of breath, blood in her vomit, chloride fevers and chills. Prescriptions: New omeprazole 20 mg capsule,delayed release(DR/EC) 20 mg PO DAILY Qty: 20 RF: 0 ondansetron 4 mg tablet,disintegrating 4 mg PO Q8H Qty: 10 RF: 0 alprazolam 0.25 mg tablet,disintegrating 0.125 mg PO BID PRN (Reason: anxiety) Qty: 7 RF: 0 No Action prenat.vits,julius,[id number] tablet 1 tab PO DAILY Qty: 100 RF: 3 bupropion HCl [Wellbutrin XL] 150 mg tablet extended release 24 hr 150 mg PO QAM Qty: 30 RF: 0 ondansetron 4 mg tablet,disintegrating 4 mg PO Q6-8H PRN (Reason: nausea and vomiting) Qty: 20 RF: 1 hydroxyzine pamoate 25 mg Capsule 50 mg PO Q4HR PRN (Reason: Nausea) Qty: 30 RF: 0 Referrals: Arlet Rosas DO [Primary Care Provider] - <Marjorie Cannon DO - Last Filed: 08/26/18 19:42> Cosign ED Attending Sabinaature Attestation: I was immediately available in the department for consultation. Documentation has been reviewed. I agree with assessment and plan.
[2018-08-25] MEDS: SODIUM CHLORIDE 0.9% 1,000 ML 1000 ML IV (11:20)
[2018-08-25] MEDS: ONDANSETRON 4 MG/2 ML INJ IV (11:20)
[2018-08-25] MEDS: PANTOPRAZOLE 40 MG VIAL 20 MG IV (11:22)
[2018-08-25 11:24] VITALS: BP 109/51; PULSE 64; RESP 14; O2SAT 98
[2018-08-25 11:29] LABS: Add Manual Diff / Slide Review NO; Basophils Absolute Auto 100 /uL (0-100); Basophils Percent Auto 0.7 % (0-2); Eosinophils Absolute Auto 100 /uL (0-450); Eosinophils Percent Auto 0.9 % (2-4); Hemoglobin 10.6 g/dL (12.0-16.0); Lymphocytes Absolute Auto 3300 /uL (1100-4500); Lymphocytes Percent Auto 22.1 % (25-40); Mean Corpuscular HGB Conc 32.9 % (30-36); Mean Corpuscular Hemoglobin 29.5 PG (26-34); Mean Corpuscular Volume 89.7 fL (80-100); Monocytes Absolute Auto 900 /uL (0-900); Monocytes Percent Auto 5.7 % (3-14); Neutrophils Absolute Auto 10700 /uL (1500-7000); Neutrophils Percent Auto 70.6 % (50-75); Platelet Count 351 X10^3/uL (150-400); Red Blood Cell Count 3.57 X10^6/uL (4.0-5.2); Red Cell Distribution Width 13.4 % (11.6-14.8); White Blood Cell Count 15.1 X10^3/uL (4.5-11.0)
[2018-08-25] MEDS: KETOROLAC 60 MG/2 ML VIAL 30 MG IV (11:32)
[2018-08-25 11:37] LABS: Alanine Aminotransferase 66 IU/L (9-52); Albumin 3.3 g/dL (3.5-5.0); Albumin Globulin Ratio 1.2 (1.0-2.8); Alkaline Phosphatase 118 U/L (38-126); Aspartate Aminotransferase 46 IU/L (14-36); Bilirubin Total 0.4 mg/dL (0.2-1.3); Blood Urea Nitrogen 16 mg/dL (7-17); Calcium 8.6 mg/dL (8.4-10.2); Carbon Dioxide 24 mmol/L (22-32); Chloride 108 mmol/L (98-107); Estimated Glomerular Filt Rate > 60.0 mL/min (>60); Globulin 2.8 g/dL (1.7-4.1); Glucose 85 mg/dL (70-100); HEMOLYSIS 29 (0-50); Lipase 73 U/L (23-300); Potassium 4.3 mmol/L (3.4-5.1); Sodium 139 mmol/L (137-145); Total Protein 6.1 g/dL (6.3-8.2)
[2018-08-25 12:03] VITALS: BP 105/52; PULSE 64; RESP 14
[2018-08-25 13:00] LABS: Bacteria Urine None Seen; RBC Urine None Seen (0-5/HPF)
[2018-08-25 13:08] LABS: Culture Indicated Urine Cult Not Indicated; Squamous Epithelial Cell Urine 5-10 /HPF (0-5/HPF); WBC Urine 5-10/HPF (0-5/HPF)
[2018-08-25] MEDS: LORazepam 0.5 MG TABLET PO (13:11)
--- NOTE | 2018-08-25 13:15 | PC.NURSE ---
verbally reassured, coached w/ controlled breathing. Discussing further care options. Denies suicidal/ homicidal thoughts.
[2018-08-25 13:16] VITALS: BP 108/72; PULSE 112; RESP 24; O2SAT 98
--- NOTE | 2018-08-25 13:30 | PC.NURSE ---
Spoke w/ pt's boyfriend. He asked that we sedate patient. We have 3 kids 2 and under...she needs to be herself. Discussed how that was not appropriate at this time. Pt is calm at times and then has panic episode.
== END 2018-08-25 13:48 | disposition home or self-care (01) ==
PROVIDERS: Emergency Provider Nurse Practitioner; PCP Family Medicine
DX: R11.2 Nausea with vomiting, unspecified (principal)
CPT/HCPCS: 36591; 80053; 81003; 81015; 83690; 85025; 96361; 96374; 96375; 99283; 99284; C9113; J1885; J2405